=== PATIENT | female | born 1985 | race African-American/Black ===

== ENCOUNTER 2020-06-12 12:10 | Emergency (ER) | payer BC, OTHER ==
[~2020-06-12] VITALS: Ht 152.4 cm; Wt 51.3 kg
[2020-06-12 12:20] VITALS: BP 99/74
--- NOTE | 2020-06-12 12:29 | Emergency Room Report ---
History of Present Illness General Chief Complaint: Abdominal Pain Source: Patient Present Illness HPI 35-year-old female presents with right lower quadrant pain sharp in nature came on 2 hours ago aggravated with pressure, alleviated with rest severity is moderate, constant no fevers no chills, patient endorses nausea, vomiting, patient presents for evaluation and treatment Allergies: Coded Allergies: No Known Allergies (Unverified , 06/12/20) COVID-19 Screening Contact w/high risk pt: No Experienced COVID-19 symptoms?: No COVID-19 Testing performed INS[employer]ES [employer]ATE: No Patient History Past Medical History: see triage record Last Menstrual Period: spotting today Now: No Reviewed Nursing Documentation: PMH: Agreed; PSxH: Agreed Nursing Documentation-PMH Past Medical History: No Stated History Review of Systems All Other Systems: negative except mentioned in HPI Physical Exam Vital Signs Date Time Temp Pulse Resp B/P (MAP) Pulse Ox O2 Delivery O2 Flow Rate FiO2 06/12/20 12:11 98.1 70 18 99/74 (82) 98 Room Air Sp02 EP Interpretation: reviewed, normal General Appearance: well appearing, no apparent distress, alert Head: normocephalic, atraumatic Eyes: bilateral eye PERRL, bilateral eye EOMI ENT: uvula midline, moist mucus membranes Neck: supple, thyroid normal, supple/symm/no masses Respiratory: lungs clear, no respiratory distress, no retraction, no accessory muscle use Cardiovascular #1: normal peripheral pulses, regular rate, rhythm, no edema, no gallop, no murmur Gastrointestinal: soft, no guarding, no rebound, tenderness - Right lower quadrant moderate, suprapubically Musculoskeletal: normal inspection Neurologic: alert, oriented x3 Psychiatric: mood/affect normal Skin: no rash, warm/dry Medical Decision Making Diagnostic Impression: Primary Impression: UTI (urinary tract infection) Qualified Codes: N30.00 - Acute cystitis without hematuria ER Course 35-year-old female presents with right lower quadrant, suprapubic pain, x2 hours, no known aggravating relieving factors severity is mild Patient given ceftriaxone\ Considerations for appendicitis, ovarian torsion, ovarian cyst were in the differential Patient improved with pain medications, and ceftriaxone patient most likely with a urinary tract infection that is ascending patient given strict abdominal return precautions, patient also given information in regards to an incidental nodule. Patient aware will follow-up with pcp Laboratory Tests Test 06/12/20 12:20 06/12/20 12:35 06/12/20 13:00 Urine Color Pale yellow Urine Appearance Slightly cloudy Urine pH 8 (4.5-8.0) Urine Specific Primrose 1.010 (1.005-1.035) Urine Protein 2+ (NEGATIVE) H Urine Glucose (UA) Negative (NEGATIVE) Urine Ketones Negative (NEGATIVE) Urine Blood 4+ (NEGATIVE) H Urine Nitrite Negative (NEGATIVE) Urine Bilirubin Negative (NEGATIVE) Urine Urobilinogen Normal MG/DL (0.0-1.0) Urine Leukocyte Esterase 2+ (NEGATIVE) H Urine RBC 0-2 /HPF (0 - 2) Urine WBC 5-10 /HPF (0 - 2) H Urine Squamous Epithelial Cells Many /LPF (NONE/OCC) H Urine Bacteria Many /HPF (NONE) H Urine HCG, Qualitative Negative (NEGATIVE) Sodium Level 139 MMOL/L (136-145) Potassium Level 3.9 MMOL/L (3.5-5.1) Chloride Level 104 MMOL/L (98-107) Carbon Dioxide Level 26 MMOL/L (21-32) Anion Gap 9 mmol/L (5-15) Blood Urea Nitrogen 13 mg/dL (7-18) Creatinine 0.9 MG/DL (0.55-1.30) Estimated Glomerular Filtration Rate > 60 mL/min (>60) Glucose Level 123 MG/DL (74-106) H Calcium Level 8.7 MG/DL (8.5-10.1) Total Bilirubin 0.5 MG/DL (0.2-1.0) Aspartate Amino Transferase (AST) 26 U/L (15-37) Alanine Aminotransferase (ALT) 17 U/L (12-78) Alkaline Phosphatase 50 U/L (46-116) Total Protein 7.8 G/DL (6.4-8.2) Albumin 4.0 G/DL (3.4-5.0) Globulin 3.8 g/dL Albumin/Globulin Ratio 1.1 (1.0-2.7) Lipase 269 U/L (73-393) Human Chorionic Gonadotropin, Quant 2 mIU/mL (1-6) White Blood Count 12.0 K/UL (4.8-10.8) H Red Blood Count 4.80 M/UL (4.20-5.40) Hemoglobin 15.7 G/DL (12.0-16.0) Hematocrit 47.0 % (37.0-47.0) Mean Corpuscular Volume 98 FL (80-99) Mean Corpuscular Hemoglobin 32.8 PG (27.0-31.0) H Mean Corpuscular Hemoglobin Concent 33.5 G/DL (32.0-36.0) Red Cell Distribution Width 11.5 % (11.6-14.8) L Platelet Count 211 K/UL (150-450) Mean Platelet Volume 7.8 FL (6.5-10.1) Neutrophils (%) (Auto) 83.7 % (45.0-75.0) H Lymphocytes (%) (Auto) 8.2 % (20.0-45.0) L Monocytes (%) (Auto) 6.6 % (1.0-10.0) Eosinophils (%) (Auto) 1.0 % (0.0-3.0) Basophils (%) (Auto) 0.6 % (0.0-2.0) Microbiology Date/Time Source Procedure Growth Status 06/12/20 12:38 Nasopharynx SARS-CoV-2 RdRp Gene Assay - Final Complete CT/MRI/US Diagnostic Results CT/MRI/US Diagnostic Results : Impression Procedure: CT Abdomen Pelvis w/Contrast Clinical Indication: Abdominal pain Technique: No oral contrast utilized, per emergency room physician request IV administration nonionic contrast. Venous phase spiral acquisition obtained through the abdomen and pelvis. Multiplanar reconstructions were generated. Total dose length product 170 mGycm. CTDIvol(s) 3 mGy. Dose reduction achieved using automated exposure control Comparison: none Findings: Lack of enteric contrast limits assessment of the GI tract. The appendix is normal. No evidence of diverticulosis or diverticulitis. There is trace free pelvic fluid. No small bowel distention. No free intraperitoneal gas. The stomach is somewhat distended with food, otherwise unremarkable. Distal esophagus and duodenum are unremarkable. The liver, gallbladder, bile ducts, pancreas, spleen, adrenals, kidneys are unremarkable. No retroperitoneal or mesenteric mass or adenopathy. No pelvic mass or adenopathy. The included lung bases demonstrate a 3 mm subpleural nodule on the right, image 5 of series 6. The bones are unremarkable. Impression: Limited assessment of the GI tract, due to lack of enteric contrast administration No definite acute abnormality Small amount of free pelvic fluid, presumably physiologic The CT scanner at [facility] is accredited by the [employer] and the scans are performed using protocols designed to limit radiation exposure to as low as reasonably achievable to attain images of sufficient resolution adequate for diagnostic evaluation. Procedure: US Pelvic w/Transvag Indication: Pelvic and right adnexal region pain, negative test Technique: Transabdominal and transvaginal images of the pelvis. Doppler interrogation of the ovaries Comparison: none Findings: Uterus measures 7.4 cm length by 4 cm AP. Endometrium measures 7 mm thick. No myometrial abnormality. Normal right ovary is normal in size, demonstrates normal Doppler signal. The left ovary cannot be visualized. There is trace free cul-de-sac fluid. Impression: Trace free cul-de-sac fluid, presumably physiologic No acute or significant abnormality. Note inability to visualize the left ovary Dictated By: Steven Coughlin MD Electronically Signed By:Steven Coughlin MD Signed Date/Time06/12/20 1630 CC: Christiano Tobin MD Last Vital Signs Date Time Temp Pulse Resp B/P (MAP) Pulse Ox O2 Delivery O2 Flow Rate FiO2 06/12/20 12:11 98.1 70 18 99/74 (82) 98 Room Air Disposition: HOME, SELF-CARE Condition: Stable Scripts Cephalexin* (KEFLEX*) 500 Mg Tablet 500 MG ORAL EVERY 6 HOURS, #40 CAP Prov: Christiano Tobin MD 06/12/20 Referrals: [facility]. [facility] Patient Instructions: Urinary Tract Infection, Hyal-by-Ywbg Additional Instructions: The patient was provided with discharge instructions, notified to follow-up with a primary care doctor and or specialist in the next 24-48 hours, and to return to the ED if they have worsening of their symptoms. Please note that this report is being documented using [employer] technology. This can lead to erroneous entry secondary to incorrect interpretation by the dictating instrument. INCIDENTAL SUBPLEURAL NODULE 3MM ON RIGHT NEEDS FOLLOW-UP NON EMERGENT WITH NON CONTRAST CT IN 6-12 MONTHS . Christiano Tobin MD Jun 12, 2020 12:29
[2020-06-12] MEDS ORDERED: Hydromorphone 0.5mg/0.5ml inj IVP ONE (12:30)
[2020-06-12] MEDS ORDERED: Omnipaque-300 100ml vial INJ PRN (12:30)
[2020-06-12 12:53] LABS: APPEARANCE,URINE SLIGHTLY CLOUDY; BILIRUBIN, URINE NEGATIVE (NEGATIVE); GLUCOSE, URINE (UA) NEGATIVE (NEGATIVE); KETONES,URINE NEGATIVE (NEGATIVE); LEUKOCYTE ESTERASE ,URINE 2+ (NEGATIVE); NITRITE,URINE NEGATIVE (NEGATIVE); PH,URINE 8 (4.5-8.0); PROTEIN,URINE 2+ (NEGATIVE); UROBILINOGEN,URINE NORMAL MG/DL (0.0-1.0)
[2020-06-12 12:56] LABS: COLOR,URINE PALE YELLOW
[2020-06-12] MEDS ORDERED: Ketorolac 30mg Inj IV ONE (13:00)
[2020-06-12 13:02] LABS: ANION GAP 9 mmol/L (5-15); BLOOD UREA NITROGEN 13 mg/dL (7-18); CALCIUM 8.7 MG/DL (8.5-10.1); CARBON DIOXIDE 26 MMOL/L (21-32); CHLORIDE 104 MMOL/L (98-107); CREATININE 0.9 MG/DL (0.55-1.30); POTASSIUM 3.9 MMOL/L (3.5-5.1); SODIUM 139 MMOL/L (136-145)
[2020-06-12 13:06] LABS: ALANINE AMINOTRANSFERASE 17 U/L (12-78); ALBUMIN/GLOBULIN RATIO 1.1 (1.0-2.7); ALKALINE PHOSPHATASE 50 U/L (46-116); ASPARTATE AMINO TRANSFERASE 26 U/L (15-37); BILIRUBIN,TOTAL 0.5 MG/DL (0.2-1.0)
[2020-06-12 13:12] LABS: BASOPHILS % (AUTO) 0.6 % (0.0-2.0); HEMOGLOBIN 15.7 G/DL (12.0-16.0); LYMPHOCYTES % (AUTO) 8.2 % (20.0-45.0); MEAN CORPUSCULAR VOLUME 98 FL (80-99); MONOCYTES % (AUTO) 6.6 % (1.0-10.0); NEUTROPHILS % (AUTO) 83.7 % (45.0-75.0); PLATELET COUNT 211 K/UL (150-450); RED CELL DISTRIBUTION WIDTH 11.5 % (11.6-14.8)
[2020-06-12] MEDS ORDERED: cefTRIAXone 1 GM in NS 55 ML IVPB ONE (13:30)
[2020-06-12] MEDS ORDERED: CEPHALEXIN500 M1 ORAL (14:07)
--- NOTE | 2020-06-12 14:16 | Diagnostic Imaging Report ---
Clinical Indication: Abdominal pain Technique: No oral contrast utilized, per emergency room physician request IV administration nonionic contrast. Venous phase spiral acquisition obtained through the abdomen and pelvis. Multiplanar reconstructions were generated. Total dose length product 170 mGycm. CTDIvol(s) 3 mGy. Dose reduction achieved using automated exposure control Comparison: none Findings: Lack of enteric contrast limits assessment of the GI tract. The appendix is normal. No evidence of diverticulosis or diverticulitis. There is trace free pelvic fluid. No small bowel distention. No free intraperitoneal gas. The stomach is somewhat distended with food, otherwise unremarkable. Distal esophagus and duodenum are unremarkable. The liver, gallbladder, bile ducts, pancreas, spleen, adrenals, kidneys are unremarkable. No retroperitoneal or mesenteric mass or adenopathy. No pelvic mass or adenopathy. The included lung bases demonstrate a 3 mm subpleural nodule on the right, image 5 of series 6. The bones are unremarkable. Impression: Limited assessment of the GI tract, due to lack of enteric contrast administration No definite acute abnormality Small amount of free pelvic fluid, presumably physiologic The CT scanner at [facility] is accredited by the [employer] and the scans are performed using protocols designed to limit radiation exposure to as low as reasonably achievable to attain images of sufficient resolution adequate for diagnostic evaluation.
[2020-06-12 14:38] VITALS: BP 99/74
--- NOTE | 2020-06-12 16:35 | Diagnostic Imaging Report ---
Indication: Pelvic and right adnexal region pain, negative test Technique: Transabdominal and transvaginal images of the pelvis. Doppler interrogation of the ovaries Comparison: none Findings: Uterus measures 7.4 cm length by 4 cm AP. Endometrium measures 7 mm thick. No myometrial abnormality. Normal right ovary is normal in size, demonstrates normal Doppler signal. The left ovary cannot be visualized. There is trace free cul-de-sac fluid. Impression: Trace free cul-de-sac fluid, presumably physiologic No acute or significant abnormality. Note inability to visualize the left ovary
== END 2020-06-12 14:39 | disposition home or self-care (01) ==
LOC: EEVIPCON 12:40 → EMR 12:40
DX: N30.00 Acute cystitis without hematuria (principal); R91.1 Solitary pulmonary nodule
CPT/HCPCS: 36415; 74177; 76830; 76856; 80053; 81003; 81025; 83690; 84702; 85025; 87086; 87181; 96365; 96375; 99284; J0696; J1170; J2405; Q9965; U0002